=== PATIENT | female | born 1960 | race Caucasian/White ===

== ENCOUNTER → 2021-05-27 | Outpatient (CLI) | payer OTHER, SELFPAY | END | disposition home or self-care (01) | LOC: PAT 06-17 14:19 | PROVIDERS: Referring Provider Surgery; Visit Provider Surgery | DX: Z20.822 Contact with and (suspected) exposure to COVID-19 (principal) | CPT/HCPCS: 87426; C9803 ==

== ENCOUNTER 2022-03-30 05:54 | Day surgery (SDC) | payer SELFPAY ==
[2022-03-30] VITALS (7 sets, daily range): BP systolic 100–165; BP diastolic 58–97; PULSE 72–99; RESP 16–18; TEMP 36.8; O2SAT 94–100; BMI 40.3
--- NOTE | 2022-03-30 06:16 | PCM.HP.STD ---
[facility] General General Date of Service: 03/30/22 Chief Complaint: Surveillance colonoscopy [facility] Narrative ANGEL DIOR, is a 61 F who presents for surveillance colonoscopy. She thinks her previous one was 5 years ago. She does have a personal history of colon polyps. No history of colon cancer. No abdominal pain or bright red blood per rectum or melena. She otherwise enjoys good health other than some mild hypertension. [facility] Medical History History of colon polyps History of deviated nasal septum Non-smoker Post-menopausal Wears glasses Home Medications aspirin 81 mg tablet 81 mg PO DAILY 05/25/21 [History Last Taken Unknown] cholecalciferol (vitamin D3) 125 mcg (5,000 unit) tablet (Vitamin D3) 125 mcg PO DAILY 05/25/21 [History Last Taken Unknown] mecobalamin (vitamin B12) 1,000 mcg chewable tablet (B12 Active) 1,000 mcg PO DAILY 05/25/21 [History Last Taken Unknown] ascorbic acid (vitamin C) 500 mg tablet 500 mg PO DAILY 03/08/22 [History Last Taken Unknown] zinc gluconate 30 mg tablet 30 mg PO DAILY 03/08/22 [History Last Taken Unknown] Allergy/AdvReac Type Severity Reaction Status Date / Time codeine Allergy Intermediate NEEDS Verified 05/25/21 15:09 FOLLOW-UP Surgical History History of cholecystectomy History of colonoscopy History of repair of ACL Social History (Updated 03/08/22 @ 10:44 by Amber Garcia) household members: spouse Smoking Status: Never smoker ROS Constitutional Constitutional: Reports systems reviewed and no addt'l complaints, except as documented Cardiovascular Cardiovascular: Denies chest pain Respiratory/Chest Respiratory/Chest: Denies shortness of breath at rest Gastrointestinal Gastrointestinal: Denies abdominal pain, change in bowel habits, hematochezia or melena Physical Exam Const alert, oriented x3 and no apparent distress General Appearance: cooperative and comfortable Eyes General Eye: normal appearance of both eyes Neck General: normal visual inspection Chest inspection of chest normal Resp Effort and Inspection: able to speak in complete sentences and symmetric chest movement Auscultation: clear to auscultation bilaterally Cardio regular rate and regular rhythm GI soft to palpation, non-tender and non-distended Extremity no calf tenderness Neuro oriented x3 Psych thought process normal Assessment & Plan Assessment/Plan (1) Encounter for screening for malignant neoplasm of colon: PLAN: 61-year-old female presents for surveillance colonoscopy because of a personal history of colon polyps. She presents via open access. She has had an opportunity to ask and have questions answered. We will proceed as noted. Lacho Patricia M.D., F.A.C.S.
[2022-03-30] MEDS: Lactated Ringers 1,000 ML 15 ML IV (06:28)
--- NOTE | 2022-03-30 07:11 | OP.COLON_ITS ---
Patient Name: Diana Slaughter Procedure Date: 03/30/2022 6:20 AM Date of : 1960 Age: 61 Procedure: Colonoscopy Indications: High risk colon cancer surveillance: Personal history of colonic polyps Providers: Lacho Patricia MD Referring MD: Lacho Patricia MD Medicines: See the Anesthesia note for documentation of the administered medications Patient Profile: Last Colonoscopy: 5 years ago. Complications: No immediate complications. Procedure: Pre-Anesthesia Assessment: - Prior to the procedure, a History and Physical was performed, and patient medications and allergies were reviewed. The patient's tolerance of previous anesthesia was also reviewed. The risks and benefits of the procedure and the sedation options and risks were discussed with the patient. All questions were answered, and informed consent was obtained. Prior Anticoagulants: The patient has taken no previous anticoagulant or antiplatelet agents. ASA Grade Assessment: II - A patient with mild systemic disease. After reviewing the risks and benefits, the patient was deemed in satisfactory condition to undergo the procedure. After I obtained informed consent, the scope was passed under direct vision. Throughout the procedure, the patient's blood pressure, pulse, and oxygen saturations were monitored continuously. The colonoscope was introduced through the anus and advanced to the cecum, identified by appendiceal orifice and ileocecal valve. The colonoscopy was performed without difficulty. The patient tolerated the procedure well. The quality of the bowel preparation was good. The ileocecal valve and the appendiceal orifice were photographed. Scope In: 6:47:42 AM Scope Withdrawal Time 0 hours 10 minutes 46 seconds Scope Out: 7:05:08 AM Total Procedure Duration Time 0 hours 17 minutes 26 seconds Findings: The digital rectal exam findings include non-thrombosed internal hemorrhoids and internal hemorrhoids that prolapse with straining, but spontaneously regress to the resting position (Grade II). A 4 mm polyp was found in the mid sigmoid colon. The polyp was sessile. The polyp was removed with a cold biopsy forceps. Resection and retrieval were complete. A 4 mm polyp was found in the mid sigmoid colon. The polyp was sessile. The polyp was removed with a cold biopsy forceps. Resection and retrieval were complete. A 4 mm polyp was found in the rectum. The polyp was sessile. The polyp was removed with a cold biopsy forceps. Resection and retrieval were complete. A few diverticula were found in the sigmoid colon. Impression: - Non-thrombosed internal hemorrhoids and internal hemorrhoids that prolapse with straining, but spontaneously regress to the resting position (Grade II) found on digital rectal exam. - One 4 mm polyp in the mid sigmoid colon, removed with a cold biopsy forceps. Resected and retrieved. - One 4 mm polyp in the mid sigmoid colon, removed with a cold biopsy forceps. Resected and retrieved. - One 4 mm polyp in the rectum, removed with a cold biopsy forceps. Resected and retrieved. - Diverticulosis in the sigmoid colon. Recommendation: - Discharge patient to home. - Resume previous diet. - Continue present medications. - Repeat colonoscopy in 5 years for surveillance based on pathology results. - Telephone my office for pathology results in 1 week. Procedure Code(s): --- Professional --- 03754, Colonoscopy, flexible; with biopsy, single or multiple Diagnosis Code(s): --- Professional --- Z86.010, Personal history of colonic polyps K64.1, Second degree hemorrhoids D12.5, Benign neoplasm of sigmoid colon K62.1, Rectal polyp K57.30, Diverticulosis of large intestine without perforation or abscess without bleeding CPT copyright 2017 [employer]. All rights reserved. The codes documented in this report are preliminary and upon patient care representative review may be revised to meet current compliance requirements. Lacho Patricia MD 03/30/2022 7:10:19 AM This report has been signed electronically. Number of Addenda: 0 Note Initiated On: 03/30/2022 6:20 AM
--- NOTE | 2022-03-30 07:11 | OP.CCLET_ITS ---
03/30/2022 Aiyana Neumann Re : Colonoscopy procedure for Diana Slaughter Dear Nel This procedure was performed on Wednesday, March 30, 2022. My impressions and recommendations are as follows: Impressions : - Non-thrombosed internal hemorrhoids and internal hemorrhoids that prolapse with straining, but spontaneously regress to the resting position (Grade II) found on digital rectal exam. - One 4 mm polyp in the mid sigmoid colon, removed with a cold biopsy forceps. Resected and retrieved. - One 4 mm polyp in the mid sigmoid colon, removed with a cold biopsy forceps. Resected and retrieved. - One 4 mm polyp in the rectum, removed with a cold biopsy forceps. Resected and retrieved. - Diverticulosis in the sigmoid colon. Recommendations : - Discharge patient to home. - Resume previous diet. - Continue present medications. - Repeat colonoscopy in 5 years for surveillance based on pathology results. - Telephone my office for pathology results in 1 week. My findings are described in the full procedure note, which is enclosed. If I can be of further assistance, please feel free to contact me at Doctor phone number(s): Work: . Sincerely, Lacho Patricia MD 03/30/2022 7:10:19 AM This report has been signed electronically.
--- NOTE | 2022-03-30 07:15 | COLBX_PTH ---
PATIENT: ANGEL DIOR LOC: EN U#:[id number] AGE/SX: 61/F ROOM: RE03/30/[address]: Dr. Lacho Patricia MD : 1960 BED: DIS: 03/30/2022 SPEC #: [id number] RECD: 03/30/22 10:45 STATUS: [place] [place] #: [id number] АННА: 03/30/22 07:[address]: Lacho Patricia DEPT: SURGICAL PATHOLOGY RECD BY: Abebe Villalta ENTERED: 03/30/22 11:30 SP TYPE: COLON BX OT DR: Aiyana [facility] Tissues: A - Sigmoid colon biopsy B - Sigmoid colon biopsy C - Rectum, NOS Procedures: Surgery Specimen Level IV HEADER OPERATION: Colonoscopy ? open access (MAC), biopsy PRE-OP DIAGNOSIS: Screening TISSUE SUBMITTED: A ? Mid sigmoid polyp biopsy, B ? Distal sigmoid polyp biopsy, C ? Rectal polyp biopsy MICROSCOPIC DIAGNOSIS A. Mid sigmoid colon polyp, biopsy: Fragments of hyperplastic polyp. B. Distal sigmoid colon polyp, biopsy: Fragments of hyperplastic polyp. C. Rectal polyp, biopsy: Fragment of hyperplastic polyp. AM:cecilia 03/31/2022 MICROSCOPIC DESCRIPTION Slides are reviewed. GROSS DESCRIPTION A - Received in fixative is one container labeled with the patient's name and designated mid sigmoid polyp biopsy. The specimen consists of two irregular fragments of light haney soft tissue that in aggregate measure 0.5 x 0.3 x 0.1 cm. The specimen is totally submitted in one cassette. B - Received in fixative is one container labeled with the patient's name and designated distal sigmoid polyp biopsy. The specimen consists of two irregular fragments of light haney soft tissue that in aggregate measure 0.6 x 0.3 x 0.1 cm. The specimen is totally submitted in one cassette. C - Received in fixative is one container labeled with the patient's name and designated rectal polyp biopsy. The specimen consists of one irregular fragment of light haney soft tissue that measures 0.3 x 0.3 x 0.1 cm. The specimen is totally submitted in one cassette. / LIOR:cecilia 03/30/2022 TC:5 CPT: 17309 x3
== END 2022-03-30 08:04 | disposition home or self-care (01) ==
LOC: EN 06:03 → AC 06:03
PROVIDERS: Referring Provider Surgery; Visit Provider Surgery
PROC: 0DJD8ZZ Inspection of Lower Intestinal Tract, Via Natural or Artificial Opening Endoscopic (ICD-10-PCS; CPT 45378; principal; 2022-03-30 07:10)
DX: Z12.11 Encounter for screening for malignant neoplasm of colon (principal); K57.30 Diverticulosis of large intestine without perforation or abscess without bleeding; K64.1 Second degree hemorrhoids; K62.1 Rectal polyp; K63.5 Polyp of colon; Z79.82 Long term (current) use of aspirin; Z86.010 Personal history of colon polyps
CPT/HCPCS: 45380; 88305; J7120; J2405